=== PATIENT | female | born 1980 | race Two or more races ===

== ENCOUNTER 2016-04-09 13:25 | Emergency (ER) | payer OTHER ==
[2016-04-09 14:16] VITALS: BP 99/62; PULSE 84; RESP 14; TEMP 98.2; O2SAT 97
--- NOTE | 2016-04-09 15:02 | UCPHY ---
H & P Time Seen by Provider: 04/09/16 14:50 Patient Type: New HPI/ROS: This patient presents with a chief complaint of sore throat and left ear pain which began yesterday. The patient has been recovering from influenza and has had a lingering cough. She has not have recent fever but she does admit to some central chest pain associated with shortness of breath for which she is been using her albuterol inhaler twice daily. She did manage to go snowboarding yesterday and felt somewhat short of breath. She denies myalgias but has had some nasal congestion. Smoking Status: Former smoker Physical Exam: GENERAL: Well-appearing, well-nourished and in no acute distress. HEAD: Atraumatic, normocephalic. EYES: Pupils equal round and reactive to light, extraocular movements intact, sclera anicteric, conjunctiva are normal. ENT: TMs normal, nares patent, there is a discrete white patch on the left tonsil but the amount of injection is minimal. There is some lymphoid hyperplasia as well. Moist mucous membranes. NECK: Normal range of motion, supple without lymphadenopathy or JVD. LUNGS: Breath sounds clear to auscultation bilaterally and equal. No wheezes rales or rhonchi. The expiratory phase of respiration is not prolonged. HEART: Regular rate and rhythm EXTREMITIES: Normal range of motion, NEUROLOGICAL: Cranial nerves II through XII grossly intact. Normal speech, normal gait. PSYCH: Normal mood, normal affect. SKIN: Warm, dry, normal turgor, no visible rashes or lesions. Constitutional: Initial Vital Signs Temperature (C) 36.8 C 04/09/16 14:10 Heart Rate 84 04/09/16 14:10 Respiratory Rate 14 04/09/16 14:10 Blood Pressure 99/62 L 04/09/16 14:10 O2 Sat (%) 97 04/09/16 14:10 O2 Delivery Mode Room Air Allergies/Adverse Reactions: No Known Allergies Allergy (Unverified 04/09/16 14:16) Home Medications: Medication Instructions Recorded Albuterol 04/09/16 Medical Decision Making Differential Diagnosis: This patient is pharynx does not have the appearance of strep pharyngitis and since the strep screen is negative I have elected not to treat her. A formal DNA test will be completed tomorrow if it is positive we will treat her. I believe that this patient has a viral syndrome and that antibiotics are not indicated at this time. - Data Points Laboratory Results: 04/09/16 04/09/16 Unknown 14:20 Group A Strep Screen NEGATIVE (NEGATIVE) Group A Strep DNA Pending Departure - Departure Disposition: Home, Routine, Self-Care Clinical Impression: Pharyngitis, Acute bronchitis Condition: Good Instructions: Pharyngitis (ED), Acute Bronchitis (ED) Additional Instructions: If your symptoms have not resolved in another 5 or 6 days you should be re- evaluated. If you feel that you're losing control of your asthma you should return immediately. Cause for concern would be fever greater than 101 degrees, increasing shortness of breath or sharp chest pain. Adult Pain & Fever Control: We recommend Acetaminophen (Tylenol) and Ibuprofen (Motrin, Advil) for pain and fever control. When fever is high or pain severe, both drugs can be used at the same time, but at different intervals. Please note the time differences. Your dose is: Acetaminophen [650]mg every 4 to 6 hours ibuprofen [600]mg every [6] hours with food OR naproxen Sodium (Aleve) [440]mg every 12 hours. Note: do not take Acetaminophen with Hydrocodone (Vicodin, Lortab) or Oxycodone (Percocet). These medications also contain Acetaminophen. No more than 3000 mg of Acetaminophen should be taken in 24 hours (for an adult) . The maximal dose of ibuprofen that it is safe in a 24-hour period is 2400 mg. You may take 400 mg every 4 hours, 600 mg every 6 hours or 800 mg every 8 hours safely. Referrals: [place],. [Primary Care Provider] - As per Instructions - PQRS PQRS Measurement: Not applicable
== END 2016-04-09 15:03 | disposition home or self-care (01) ==
LOC: CED 13:25
DX: J02.9 Acute pharyngitis, unspecified (principal); J20.9 Acute bronchitis, unspecified; H92.02 Otalgia, left ear; Z87.891 Personal history of nicotine dependence
CPT/HCPCS: 87880-PO; 99203-PO; G0463-PO